=== PATIENT | female | born 1960 | race Caucasian/White ===

== ENCOUNTER → 2017-11-16 09:36 | Outpatient (CLI) | payer BC, SELFPAY ==
--- NOTE | 2017-11-16 09:42 | XR_ITS ---
XR knee RT 3V HISTORY: ITS.REASON: RT KNEE PAIN ORDERING PHYSICIAN: Ashley Suarez PATIENT AGE: 56 years FINDINGS: There are mild tricompartmental osteoarthritic changes slightly greater along the medial compartment and patellofemoral joint. There is increased density in the suprapatellar region suggesting an effusion. No acute fracture or dislocation is evident. There are some calcifications within the soft tissues along the anterior aspect of the distal femur. In addition, there is a loose body overlying the anterior aspect of the knee joint and the medial aspect of the lateral joint space measuring 18 mm. IMPRESSION: 1. Osteoarthritis with knee joint effusion. 2. Intra-articular loose body anteriorly
== END ==
PROVIDERS: PCP Family Medicine; Visit Provider Nurse Practitioner
DX: M25.561 Pain in right knee (principal)
CPT/HCPCS: 73562

== ENCOUNTER → 2017-12-08 14:53 | Outpatient (CLI) | payer BC, SELFPAY ==
--- NOTE | 2017-12-08 14:53 | MR_ITS ---
MR knee RT wo con Ordering Physician: Kevin Peck MD Patient Age: 56 years: Female HISTORY: ITS.REASON: knee pain Knee pain since November 16 heard pop & had pain ever since. Pain is behind patella and lateral right knee. Swelling. TECHNIQUE: Multiplanar multisequence imaging on 1.5 T MR COMPARISON :Plain films right knee 11/16/2017. FINDINGS. Medial meniscal tear involving posterior horn. This horizontal tear extending to free margin, is best seen on sagittal image 18, 17, 16. There is a Relatively generous volume of this posterior horn & with this difficult to totally exclude displaced summated meniscal fragment from the small anterior horn, but more likely this appearance reflects a tear through a generous sized posterior horn. Developing degenerative arthritic changes at the knee. Tricompartmental marginal osteophytes noted At medial compartment suggestive minor chondral thinning and scuffing I believe most evident at mid weightbearing surface medial femoral condyle but also seen anterior tibial plateau. . Lateral meniscus intact. Lateral compartment fairly well-maintained with only question some mild chondral thinning. There is a old corticated osseous fragment anterior joint, anterior resides the anterior tibial spine,. This reflects likely a old loose body but I do not see a site of origin. Alternatively this could accessory ossicle. . I do not see origin of such a generous size fragment support this as a loose body. The ACL is intact but . No avulsion of anterior tibial spine,. Upper normal signal which may reflect some fluid along its course. PCL intact. The medial and lateral collateral ligaments intact. The quadriceps tendon seems to be intact. Patellar tendon with upper normal signal near its patellar insertion. Mild edema overlying patella. Large joint effusion Patellofemoral joint. Slight lateral position and tracking of patella.. With the large joint effusion elevates the patella & may accentuate this feature note series a small osteochondral irregularity seen at the distal femur component involving lateral patellofemoral joint. Axial image 14, 13. IMPRESSION: . 1. Prominent medial meniscal tear at posterior horn 2. Degenerative arthritic changes of the right knee. ... Mild joint space narrowing w/ Chondral scuffing & thinning most evident at the Medial compartment. ... Tricompartmental marginal osteophytes. 3. Large joint effusion 4.. Lateral position and tracking of patella. Series of small Osteochondral irregularity/defects along the femoral aspect of the lateral patellofemoral joint noted,. 5. Prominent corticated osseous fragment anterior joint, possibly reflects relatively stable intra-articular loose body versus some form of accessory ossification.. This resides just to the anterior tibial spine. See comments above ...
== END ==
PROVIDERS: Family Provider Nurse Practitioner; PCP Family Medicine; Visit Provider Orthopaedic Surgery
DX: M17.11 Unilateral primary osteoarthritis, right knee (principal)
CPT/HCPCS: 73721

== ENCOUNTER 2017-12-25 09:00 | Outpatient (RCR) | payer BC, SELFPAY ==
--- NOTE | 2017-12-06 09:07 | HMH.PTOPEV ---
PT Outpatient Evaluation Rehab PT Outpatient Evaluation Start: 12/06/17 08:02 Freq: Status: Active Protocol: Document 12/06/17 08:58 COLTON (Rec: 12/06/17 09:07 COLTON [id number]) Electronically Signed By Kyler Murguia, PT 12/06/17 08:58 Outpatient Therapy Subjective History Subjective History Pt presents with c/o pain in right knee x ~ 1 mo with insidious onset of symptoms. She reports no known injury, but did have a fall with problems in her left knee some time ago. She had X-ray performed which was unremarkable except for a possible loose body in the knee jt and she is now scheduled for MRI on 12/08. She reports having some sensations of popping or snapping in the right knee prior to the pain beginning. Chief Complaint Pain Catches/Locks Symptom Type Ache Throb Sharp Symptoms Relieved By Rest/Positioning Symptoms Aggravated By Standing Physical Activity Walking Prior Functional Limitations None Current Functional Limitations Recreation Activity Walking Symptom Description Constant but Variable Level of pain today (0-10) 4 Pain scale - at its worst (0-10) 8 Hip/Knee Eval Gait Observation General Gait Pattern Observation Antalgic Gait Decrease Weight Bear (R) Assistive Device Assistive Devices Rolling / Wheeled Walker Palpation Tenderness right Knee Palpation Finding Tenderness MMT Hip Flexion Strength Grade 3+ Fair+ Hip Abduction Strength Grade 3+ Fair+ Hip Adduction Strength Grade 3+ Fair+ Hip Extension Strength Grade 3+ Fair+ Knee Extension Strength Grade 3+ Fair+ Knee Flexion Strength Grade 3+ Fair+ ROM Knee Flexion Active Range of Motion ( 5-115 degrees) Knee Flexion Passive Range of Motion ( 0-120 degrees) Special Tests Knee Anterior Drawer Test Negative Right Knee Anterior Ashley Test Negative Right Knee Posterior Sag ([place] Drawer) Test Negative Right Knee Valgus Stress Test Negative Right Knee Varus Stress Test Negative Right Knee Jeff Test Negative Right Outpatient Ther
== END 2017-12-25 09:01 | disposition home or self-care (01) ==
LOC: PT 09:00
PROVIDERS: Family Provider Nurse Practitioner; PCP Family Medicine; Visit Provider Orthopaedic Surgery
DX: M25.561 Pain in right knee (principal); M76.51 Patellar tendinitis, right knee; M76.899 Other specified enthesopathies of unspecified lower limb, excluding foot; M17.11 Unilateral primary osteoarthritis, right knee
CPT/HCPCS: 97010; 97014; 97016; 97110; 97140; 97163; G0283

== ENCOUNTER → 2017-12-27 10:56 | Outpatient (CLI) | payer BC, SELFPAY ==
[2017-12-27 11:12] LABS: Basophils # 0.1 K/mm3 (0-0.2); Basophils % 1.3 % (0.1-2.0); Eosinophils # 0.8 K/mm3 (0.0-0.4); Eosinophils % 7.3 % (0.1-12.0); Hematocrit 46.7 % (37.0-47.0); Lymphocytes # 3.6 K/mm3 (0.7-4.5); Lymphocytes % 30.9 K/mm3 (10-50); Mean Corpuscular Hemoglobin 28.4 pg (27.0-31.2); Mean Corpuscular Volume 94.7 fl (81-99); Mean Platelet Volume 8.8 fl (7.4-10.4); Monocytes # 0.6 K/mm3 (0.1-1.0); Monocytes % 4.9 % (1.7-9.3); Neutrophils # 6.4 K/mm3 (1.8-7.8); Neutrophils % 55.7 % (37.0-80.0); Platelet Count 397 K/mm3 (142-424); Red Blood Count 4.93 M/mm3 (4.20-5.40); Red Cell Distribution Width 14.1 % (11.5-17.5); White Blood Count 11.5 K/mm3 (4.8-10.8)
--- NOTE | 2017-12-27 11:16 | XR_ITS ---
XR chest 2V HISTORY: Former smoker ITS.REASON: PRE OP ORDERING PHYSICIAN: Kevin Peck MD PATIENT AGE: 57 years COMPARISON: None FINDINGS: The cardiomediastinal silhouette and pulmonary vascularity are within normal limits. COPD. Multiple left rib fractures with pleural thickening similar to the previous exam. There is some eventration of the left hemidiaphragm posteriorly which was present previously. No lobar consolidation or collapse. No acute bony anomalies. IMPRESSION: COPD with old left-sided rib fractures and chronic pleural changes, no acute finding
[2017-12-27 12:38] LABS: Anion Gap 13.3 mEq/L (5-15); Blood Urea Nitrogen 25 mg/dL (7-18); Calcium 10.5 mg/dL (8.5-10.1); Carbon Dioxide 28 mmol/L (21.0-32.0); Chloride 105 mmol/L (98-107); Creatinine,Serum 1.36 mg/dL (0.55-1.02); Estimated Glomerular Filt Rate 40 ml/min (>60); GFR (African American) 48 ML/MIN (>60); Glucose 109 mg/dL (74-106); Potassium 5.3 mmoL/L (3.5-5.1); Sodium 141 mmol/L (136-145)
== END ==
PROVIDERS: Visit Provider Orthopaedic Surgery
DX: Z01.818 Encounter for other preprocedural examination (principal); M23.41 Loose body in knee, right knee; M23.321 Other meniscus derangements, posterior horn of medial meniscus, right knee
CPT/HCPCS: 36415; 71046; 80048; 85025; 93005

== ENCOUNTER 2018-03-01 17:30 | Outpatient (RCR) | payer BC, SELFPAY ==
--- NOTE | 2018-01-30 10:54 | HMH.PTOPEV ---
PT Outpatient Evaluation Rehab PT Outpatient Evaluation Start: 01/30/18 10:47 Freq: Status: Active Protocol: Document 01/30/18 10:47 COLTON (Rec: 01/30/18 10:54 COLTON [id number]) Electronically Signed By Kyler Murguia, PT 01/30/18 10:47 Outpatient Therapy Subjective History Subjective History Pt is 57 yo white female who presents ~ 3 wks S/P right knee partial menisectomy and loose body removal with expected post-op pain and stiffness. She was previously coming to therapy for right knee pain and was found to have meniscus tear via MRI. She now reports pain is less than before surgery and states , I don't have that feeling of my knee locking anymore. Chief Complaint Pain Stiff Symptom Type Ache Symptoms Relieved By Rest/Positioning Symptoms Aggravated By Walking Prior Functional Limitations Standing Walking Stairs Current Functional Limitations Walking Stairs Symptom Description Constant but Variable Level of pain today (0-10) 3 Pain scale - at its worst (0-10) 6 Hip/Knee Eval Gait Observation General Gait Pattern Observation Antalgic Gait Assistive Device Assistive Devices None / NA Palpation Tenderness right Knee Palpation Finding Tenderness Knee Palpation Overall Comment inferior,medial right knee MMT Hip Flexion Strength Grade 4 Good Hip Abduction Strength Grade 4 Good Hip Adduction Strength Grade 4 Good Hip Extension Strength Grade 4 Good Knee Extension Strength Grade 4 Good Knee Flexion Strength Grade 4 Good ROM Hip ROM Reason Not Measured Within Functional Limits Knee Flexion Active Range of Motion ( 0-115 degrees) Outpatient Therapy Assessment Impairments Problems/Impairmments Palpation Tenderness Impaired Range of Motion Impaired Strength Impaired Gait Pattern Impaired Walking Increased Edema Subjective C/O Pain Impaired Self Care/Self Management Prognosis Rehab Potential Good Clinical Impression Consistent with Diagnosis Yes
== END 2018-03-01 17:31 | disposition home or self-care (01) ==
LOC: PT 17:30
PROVIDERS: Family Provider Nurse Practitioner; PCP Family Medicine; Visit Provider Orthopaedic Surgery
DX: S83.241A Other tear of medial meniscus, current injury, right knee, initial encounter (principal)
CPT/HCPCS: 97010; 97014; 97016; 97110; 97163; G0283

== ENCOUNTER → 2022-08-11 14:27 | Outpatient (CLI) | payer BC, SELFPAY ==
--- NOTE | 2022-08-11 | US_ITS ---
PROCEDURE INFORMATION: Exam: US Right Breast, Complete MG Bilateral Diagnostic Breast Tomosynthesis Exam date and time: 08/11/2022 3:12 PM Age: 61 years old Clinical indication: 10 o'clock right breast palpable lump. Apparently, this examination was begun yesterday in the site has requested immediate dictation. Initial interpreting radiologist is not currently available. The patient is scheduled for breast biopsy on Monday TECHNIQUE: Imaging protocol: Complete ultrasound of all four quadrants of the Right breast and the retroareolar regions, including ultrasound of the axilla when performed. Bilateral Diagnostic tomosynthesis and 2D mammography including computer-aided detection (CAD) when performed. Unilateral or bilateral exam. COMPARISON: MG MM DIG MAMM BI DX W/CAD 08/11/2022 2:39 PM FINDINGS: MAMMOGRAPHY: There are scattered areas of fibroglandular density. There is a 4 cm suspicious spiculated mass in the upper outer right middle 1/3 centered about 10 cm from the nipple. At least 3 abnormally dense appearing right axillary lymph nodes measure up to 1.8 cm. This combination of findings is suggestive of right breast cancer with a regional lymph node metastatic spread Subtle lower inner left middle 1/3 0.7 cm circumscribed mass is present, approximately 8 cm from the nipple. This could reflect a benign intramammary lymph node but should be further characterized with ultrasound. Additionally, in the upper slightly inner anterior left breast, about 5 cm from the nipple, there is a 0.7 cm asymmetric density. Targeted ultrasound is recommended to further characterize. No left axillary adenopathy ULTRASOUND: Targeted ultrasound of the region of palpable concern 10 o'clock right breast 7 cm from the nipple demonstrates a spiculated hypoechoic densely shadowing suspicious 3.7 x 3.4 by 2.6 cm mass. Hypoechoic circumscribed right axilla masses are consistent with abnormal lymph nodes with the paucity of central hilar fat. These measure 1.3, 1.1, and 0.9 cm IMPRESSION: Right: Evidence highly suggestive of large primary right breast cancer with axillary adenopathy. Ultrasound-guided biopsy is recommended for further characterization of the palpable mass and axillary lymph node. I am told the ultrasound-guided biopsy is scheduled for Monday Left: There are 2 nonspecific 0.7 cm focal asymmetries within the lower inner left middle 1/3 about 8 cm from the nipple and upper slightly inner anterior left breast about 5 cm from the nipple. Ultrasound assessment is recommended to exclude the possibility of underlying subcentimeter mass ASSESSMENT: Right breast: BI-RADS category 5: Highly suggestive of malignancy Left breast: BI-RADS 0, incomplete, needs additional imaging evaluation
== END ==
PROVIDERS: PCP Family Medicine; Visit Provider Family Medicine
DX: Z12.31 Encounter for screening mammogram for malignant neoplasm of breast (principal); R92.8 Other abnormal and inconclusive findings on diagnostic imaging of breast; N63.11 Unspecified lump in the right breast, upper outer quadrant
CPT/HCPCS: 76641; 77062; 77066; G0279

== ENCOUNTER → 2022-11-14 07:53 | Outpatient (CLI) | payer BC, SELFPAY ==
[2022-11-14 07:59] LABS: Microscopic, Urine URINE MICROSCOPIC (MICROSCOPIC)
[2022-11-14 08:19] LABS: Appearance,Urine CLEAR (Clear); Bilirubin,Urine Negative (Negative); Blood, Urine Negative (Negative); Color,Urine YELLOW (Yellow); Glucose,Urine (UA) Negative (Negative); Ketones,Urine Negative (Negative); Leukocyte Esterase,Urine 2+ (Negative); Nitrate,Urine Negative (Negative); Protein,Urine Negative (Negative); Urobilinogen,Urine 0.2 EU/dl (0.2)
[2022-11-14 08:26] LABS: Creatinine,Urine Random 45 mg/dL (Not Estab.)
[2022-11-14 08:30] LABS: Bacteria,Urine Trace /lpf
[2022-11-14 08:51] LABS: Chloride 103 mmol/L (98-107); Sodium 138 mmol/L (136-145)
[2022-11-14 08:52] LABS: Albumin Level 4.4 g/dl (3.5-5.0); Potassium 5.6 mmoL/L (3.5-5.1)
[2022-11-14 08:54] LABS: Anion Gap 10.6 mEq/L (5-15); Blood Urea Nitrogen 20 mg/dl (7-17); Carbon Dioxide 30 mmol/L (22.0-30.0); Estimated Glomerular Filt Rate 24 ml/min (>60); GFR (African American) 29 ML/MIN (>60)
[2022-11-14 08:55] LABS: Calcium 9.2 mg/dl (8.4-10.2); Glucose 93 mg/dl (74-100); Phosphorous 4.1 mg/dl (2.5-4.5)
== END ==
PROVIDERS: PCP Family Medicine; Visit Provider Internal Medicine Nephrology
DX: N17.9 Acute kidney failure, unspecified (principal); R80.9 Proteinuria, unspecified; N39.0 Urinary tract infection, site not specified
CPT/HCPCS: 36415; 80069; 81001; 82570; 84155; 87086

== ENCOUNTER → 2022-12-20 07:55 | Outpatient (CLI) | payer BC, SELFPAY ==
[2022-12-20 08:02] LABS: Microscopic, Urine URINE MICROSCOPIC (MICROSCOPIC)
[2022-12-20 08:35] LABS: Appearance,Urine CLEAR (Clear); Basophils # 0.1 K/mm3 (0-0.2); Bilirubin,Urine Negative (Negative); Blood, Urine Negative (Negative); Color,Urine YELLOW (Yellow); Eosinophils # 0.2 K/mm3 (0.0-0.4); Eosinophils % 4.3 % (0.1-12.0); Glucose,Urine (UA) Negative (Negative); Hematocrit 39.6 % (37.0-47.0); Hemoglobin 12.4 g/dL (12.2-16.2); Ketones,Urine Negative (Negative); Leukocyte Esterase,Urine 3+ (Negative); Lymphocytes # 1.4 K/mm3 (0.7-4.5); Lymphocytes % 40.2 % (10-50); Mean Corpuscular HGB Conc 31.3 g/dL (31.8-35.4); Mean Corpuscular Hemoglobin 30.8 pg (27.0-31.2); Mean Corpuscular Volume 98.4 fl (81-99); Monocytes # 0.1 K/mm3 (0.1-1.0); Monocytes % 3.9 % (1.7-9.3); Neutrophils # 1.8 K/mm3 (1.8-7.8); Neutrophils % 49.4 % (37.0-80.0); Nitrate,Urine Negative (Negative); PH,Urine 6.5 (5.0-8.5); Platelet Count 618 K/mm3 (142-424); Protein,Urine Negative (Negative); Red Blood Count 4.03 M/mm3 (4.20-5.40); Red Cell Distribution Width 17.7 % (11.5-17.5); Urobilinogen,Urine 0.2 EU/dl (0.2); White Blood Count 3.6 K/mm3 (4.8-10.8)
[2022-12-20 08:46] LABS: Albumin Level 4.3 g/dl (3.5-5.0); Bacteria,Urine Trace /lpf; Blood Urea Nitrogen 25 mg/dl (7-17); Calcium 9.4 mg/dl (8.4-10.2); Carbon Dioxide 28 mmol/L (22.0-30.0); Chloride 100 mmol/L (98-107); Estimated Glomerular Filt Rate 24 ml/min (>60); GFR (African American) 29 ML/MIN (>60); Glucose 102 mg/dl (74-100); Phosphorous 3.6 mg/dl (2.5-4.5); Sodium 138 mmol/L (136-145); Uric Acid 7.1 mg/dl (2.5-6.2)
[2022-12-20 08:47] LABS: Creatinine,Urine Random 54 mg/dL (Not Estab.)
== END ==
PROVIDERS: PCP Family Medicine; Visit Provider Hospitalist
DX: N17.9 Acute kidney failure, unspecified (principal); M10.9 Gout, unspecified
CPT/HCPCS: 36415; 80069; 81001; 82570; 84155; 84550; 85025; 87086

== ENCOUNTER 2025-02-28 07:33 | Outpatient (CLI) | payer BC, SELFPAY ==
--- NOTE | 2025-02-28 | CA_ITS ---
FINAL REPORT TECHNIQUE: Bilateral lower extremity venous duplex was performed with augmentation and compression. CLINICAL HISTORY: Bilateral pedal edema, HTN, Leg pain, Left leg fractures FINDINGS: Proper flow is seen throughout the deep venous systems bilaterally. There is no evidence of deep venous thrombosis. IMPRESSION: No evidence of deep venous thrombosis in the bilateral lower extremities. Reviewed, Interpreted and Dictated by Jonny Hemphill MD Transcribed by Arianne Park Authenticated and [facility]
--- OUTSIDE RECORDS SUMMARY | 2025-02-28 07:37 | XMS_ITS | Clinical Summary ---
Author Organization [facility] Address [address] [place] [id number] Phone [email or web address] Care Team Providers Care Truck Caterer Name Role Phone Unavailable Primary Care Provider Unavailabl e Active Problems Problem Noted Date Diagnosed Date Other abnormal glucose 05/30/2018 Overview (04/07/2021): Other specified abnormal findings of blood chemi stry 05/31/2017 Overview (04/07/2021): Stage 3 chronic kidney disease 06/02/2016 Overview (04/07/2021): Allergic rhinitis, unspecified 05/30/2016 Overview (04/07/2021): Hyperlipidemia, unspecified 08/05/2015 Overview (04/07/2021): Hypothyroidism 11/27/2014 Overview (04/07/2021): Allergic rhinitis 11/27/2014 Overview (04/07/2021): Neuralgia, neuritis or radiculitis 08/28/2014 Overview (04/07/2021): Abnormal weight gain 08/28/2014 Overview (04/07/2021): Immunizations Immunization Administration Dates Next Due Influenza (Flucelvax) MDCK, PF, quad (CVX-171) 06/03/2021,05/27/2019,05/28/2018 Influenza, (Afluria Fluarix Flulaval Fluzone) quad, PF (CVX-150) 06/08/2022 Social History Tobacco Use Types Packs/Day Years Used Date Smoking Tobacco: Former Cigarettes Q uit: 06/01/2009 Comments:Smoking History Pac ks/day: 0 cigarettes Intimate Partner Violence Answer Date R ecorded Insults You Not on file 04/11/2021 Threatens You Not on file 04/11/2021 Screams at You Not on file 04/11/2021 Physically Hurt Not on file 04/11/2021 Intimate Partner Violence Score Not on file 04/11/2021 Stress Answer Date Recorded Stress in your Life Not on file 05/29/2024 Dealing with Stress 3 05/29/2024 Comments Unknown Sex and Gender Information Value Date Recorded Sex Assigned at Not on file Legal Sex Female 12:55 PM CDT Gender Identity Not on file Sexual Orientation Not on file Last Filed Vital Signs Vital Sign Reading Time Taken Comments Blood Pressure 165/88 06/08/2022 9:30 AM EST Pulse 69 06/08/2022 9:30 AM EST Temperature - - Respiratory Rate - - Oxygen Saturation 94% 06/08/2022 9:30 AM EST Inhaled Oxygen Concentration - - Weight 127 kg (280 lb) 06/08/2022 9:30 AM EST Height 182.9 cm (6') 06/08/2022 9:30 AM EST Body Mass Index 37.97 06/08/2022 9:30 AM EST Plan of Treatment Health Maintenance Due Date Last Done Comments CT Colonography 1960 Cervical Cancer Screening Combo 1960 Colonoscopy 1960 Colorectal Cancer Screening Combo 1960 DNA Cologuard 1960 Dental Cleaning/Exam 1960 FIT or FOBT Test 1960 HIV Screening 1960 HPV / Cotest 1960 Hepatitis C Screening 1960 Pap Testing 1960 Sigmoidoscopy 1960 Annual Preventive Exam 1978 Hep B Infection Screening - Triple Screen 1978 Tetanus Diphtheria and Pertussis Immunization (1 - Tdap) 12/13/1979 Breast Cancer Screening 1990 Zoster Immunization (1 of 2) 2010 Covid-19 Immunization (2023-25 season) 2024 Influenza Immunization (#1) 03/24/202505/24, 06/03/2021, 05/27/2019, Additional history exists HIB Immunization Aged Out 08/27/2008 No longer e ligible based on patient's age to complete this topic Pneumococcal: Ped (0 to 5 Yrs) and At-Risk Member (6 to 64 Yrs) Aged Out 08/27/2008 No longer eligible based on patient's age to complete this topic HPV Immunization Aged Out No longer e ligible based on patient's age to complete this topic Hepatitis A Immunization Aged Out No longer eligible based on patient's age to complete this topic Hepatitis B Immunization Aged Out No longer eligible based on patient's age to complete this topic Polio Immunization Aged Out No longer eligible based on patient's age to complete this topic Insurance V[employer]ITA NO COPAY NB
--- OUTSIDE RECORDS SUMMARY | 2025-02-28 07:37 | XMS_ITS | Clinical Summary ---
Author Organization Healthcare Address [address] [place] [address] Care Team Providers Care Freelance Graphic Designer Name Role Phone Gonzalo Alcala MD Primary Care Provider [phone] Immunizations Immunization Administration Dates Next Due HiB, unspecified 08/27/2008 Meningococcal MCV4P 08/27/2008 Pneumococcal, Unspecified 08/27/2008 Family History Medical History Relation Name Comments Heart attack Father Breast cancer Sister 1 Pancreatic cancer Sister 2 Relation Name Status Comments Father Sister 1 Sister 2 Social History Tobacco Use Types Packs/Day Years Used Date Smoking Tobacco: Never Alcohol Use Standard Drinks/Week Comments No 0 (1 standard drink = 0.6 oz pur e alcohol) Comments Unknown Sex and Gender Information Value Date Recorded Sex Assigned at Not on file Legal Sex Female 8:14 PM EDT Gender Identity Not on file Sexual Orientation Not on file Last Filed Vital Signs Vital Sign Reading Time Taken Comments Blood Pressure - - Pulse - - Temperature - - Respiratory Rate - - Oxygen Saturation - - Inhaled Oxygen Concentration - - Weight 131 kg (288 lb 0.1 oz) 03/27/2015 9:59 AM EDT Height - - Body Mass Index - - Plan of Treatment Health Maintenance Due Date Last Done Comments [facility]-Depression Screening 1960 [facility]-Infant/Child/Adol SDOH Screenings 1960 [facility]- SDOH Screenings 1978 [facility]-Adult SDOH Screenings 1978 [facility]-DTaP,Tdap,and Td Vaccine s (1 - Tdap) 12/13/1979 [facility]-Pap Smear 1981 [facility]-Cervical Cancer Screening 1990 [facility]-HPV/Cotest 1990 CT Colonography 2005 Colonoscopy 2005 FIT-DNA 2005 FIT 2005 FOBT 2005 Sigmoidoscopy 2005 [facility]-Colorectal Cancer Screening 2005 [facility]-Pneumococcal Vaccine: 50 + Years (1 of 1 - PCV) 2010 08/27/2008 [facility]-Zoster Vaccines (1 of 2) 2010 [id number] Vaccine (1 - 20 24-25 season) 2024 [facility]-Influenza Vaccine (#1) 2025 [facility]-RSV Vaccine: 60+ Years o r (1 - 1-dose 75+ series) 12/13/2035 [facility]-HIB Vaccines Aged Out 08/27/2008 No longer e ligible based on patient's age to complete this topic HPV Vaccines Aged Out No longer eligi ble based on patient's age to complete this topic [facility]-Hepatitis A Vaccines Aged Out No longer eligible based on patient's age to complete this topic [facility]-IPV Vaccines Aged Out No longer e ligible based on patient's age to complete this topic [facility]-Rotavirus Vaccines Aged Out No lo nger eligible based on patient's age to complete this topic Care Teams Freelance Graphic Designer Relationship Specialty Start Date End Date Gonzalo Alcala MD [address] [facility] [place] [address] PCP - General 12/04/20
== END 2025-02-28 23:59 | disposition home or self-care (01) ==
LOC: RT 07:35
PROVIDERS: PCP Family Medicine; Visit Provider Internal Medicine Hematology & Oncology
DX: C50.411 Malignant neoplasm of upper-outer quadrant of right female breast (principal); C79.51 Secondary malignant neoplasm of bone; G89.3 Neoplasm related pain (acute) (chronic); I10 Essential (primary) hypertension; S82.92XA Unspecified fracture of left lower leg, initial encounter for closed fracture; M79.606 Pain in leg, unspecified; R60.0 Localized edema
CPT/HCPCS: 93970